=== PATIENT | female | born 1950 | race Caucasian/White ===

== ENCOUNTER → 2018-11-09 | Outpatient (CLI) | payer OTHER, MEDICARE ==
[2018-11-09 11:53] VITALS: BP 166/81; PULSE 62; RESP 16; TEMP 98; BMI 26.2
--- NOTE | 2018-11-09 12:50 | P.GSHP ---
History of Present Illness H&P Date: 11/09/18 Chief Complaint: pain in left breast since July Patient is a 68 year old white female with a complaint of bilateral breast pain. The pain is intermittent. The pain started in the left side and occurs 10-12 times per day. She has had this since July. No trauma to the breast. Recently the pain started also in the right breast. The pain does not radiate. She states the left side seems swollen to her. She has no history of infection in the breast. She has no nipple discharge. She is questioning if she can feel something in her left breast. It is in the inferior portion of hte breast. She has no fever or chills, but has had hot flashes since the pain started. Of significance is the fact that the patient had a total abdominal hysterectomy at 25. This was done for endometriosis. The patient did take hormone replacement therapy until the age of 51, and is not taking anything for approximately 17 years. The patient drinks 2-3 cups of coffee in the morning. She does not drink soda or other caffeinated beverages. The patient does not smoke and is not exposed to cigarette smoke. The patient is not taking any hormones at the present time. The patient was exposed to second hand smoke many years ago. The patient had a bilateral mammogram performed 2518 which was BIRADS 2 benign findings follow up in 1 year recommended. Family History: maternal cousin: breast at 50, bilateral mastectomy Hormonal History: menarche: 11 : 7, 2 live births, first at 18, breast fed: yes menopause: hysterctomy for endometriosis in her 20's BCP: 4 years hormones: 25 years, used to take estrogen and B12 shots and than switched to oral estrogen Past surgical history: 1. Total abdominal hysterectomy 2. TNA 3. Left knee 4. D&C 5. Surgery for adhesions and small bowel obstruction 6. Vocal cord stripping 7. Bunionectomy right foot 8. Fracture left elbow 9. Cholecystectomy 10. Hemorrhoid surgery 11. Colon resection ulcerative colitis, and diverticular disease 12. back surgery Medical History: 1. mitral valve prolapse 2. history of pancreatitis after a scope 3. ulcerative colitis 4. need for intubation with epiglotitis 5. laryngotracheobronchitiis 6. viral meningitis Social History: smoke: none alcohol: occasional drugs: none - Constitutional Comment: BMI 26.2 Constitutional: Reports chills, Reports sweats - EENT Eyes: denies blurred vision, denies pain Ears: deny: decreased hearing, tinnitus Ears, nose, mouth and throat: Reports headache, Denies sore throat - Breasts Breasts: bilateral: as per HPI - Cardiovascular Comment: MVP Cardiovascular: Denies chest pain, Denies shortness of breath - Respiratory Respiratory: Denies cough, Denies 7 - Gastrointestinal Comment: ulcertive colitis diverticular disease - Genitourinary (Female) Genitourinary: Denies dysuria, Denies hematuria - Menstruation Menstruation: Reports post hysterectomy - Musculoskeletal Comment: back surgery arthritis in her hands - Integumentary Integumentary: Denies pruritus, Denies rash - Neurological Neurological: Denies numbness, Denies weakness - Psychiatric Psychiatric: Denies anxiety, Denies depression - Endocrine Comment: thyroid nodules - Hematologic/Lymphatic Comment: baby aspirin - Allergic/Immunologic Allergic/Immunologic: Reports seasonal allergies Past Medical History History of Any Multi-Drug Resistant Organisms: None Reported Smoking Status: Never smoker Medications and Allergies Home Medications Medication Instructions Recorded Confirmed Type ALPRAZolam [Xanax] 0.5 mg PO TID PRN 11/09/18 11/09/18 History Acetaminophen [Tylenol Arthritis] 650 mg PO 11/09/18 History Aspirin 81 mg PO DAILY 11/09/18 11/09/18 History Cyanocobalamin (Vitamin B-12) 1,000 mcg PO 11/09/18 History [Vitamin B-12] Glimepiride [Amaryl] 1 mg PO AC-BRKFST 11/09/18 11/09/18 History Hydrochlorothiazide 25 mg PO 11/09/18 History Levothyroxine Sodium 125 mcg PO 11/09/18 History Metoprolol Succinate (ER) [Toprol 100 mg PO DAILY 11/09/18 11/09/18 History Xl] amLODIPine [Norvasc] 5 mg PO DAILY 11/09/18 11/09/18 History metFORMIN HCL 500 mg PO 11/09/18 History Allergies Allergy/AdvReac Type Severity Reaction Status Date / Time iodine Allergy Rash/Hives Unverified 11/09/18 12:08 Penicillins Allergy Rash/Hives Unverified 11/09/18 12:08 acetaminophen [From Vicodin] AdvReac Hallucinati Unverified 11/09/18 12:08 ons codeine AdvReac Hallucinati Unverified 11/09/18 12:08 ons hydrocodone [From Vicodin] AdvReac Hallucinati Unverified 11/09/18 12:08 ons lorazepam [From Ativan] AdvReac Hallucinati Unverified 11/09/18 12:08 ons meperidine [From Demerol] AdvReac Hallucinati Unverified 11/09/18 12:08 ons morphine AdvReac Hallucinati Unverified 11/09/18 12:08 ons pentazocine [From Talwin] AdvReac Hallucinati Unverified 11/09/18 12:08 ons Surgical - Exam Vital Signs Temp Pulse Resp BP Pulse Ox 98.0 F 62 16 166/81 97 11/09/18 11:46 11/09/18 11:46 11/09/18 11:46 11/09/18 11:46 11/09/18 11:46 BMI 26.2 - General well developed, well nourished, no distress - Eyes normal ocular movement - ENT no hearing loss, no congestion - Neck no masses, trachea midline - Respiratory normal respiratory effort, clear to auscultation - Cardiovascular Rhythm: regular Heart Sounds: normal: S1, S2 - Abdomen Abdomen: soft, non tender, no guarding, no rigid, no rebound - Integumentary normal turgor - Neurologic no disoriented, no combative - Musculoskeletal normal gait, normal posture - Psychiatric oriented to time, oriented to person, oriented to place, speech is normal, memory intact breast exam: left breasts: Multiple positional exam with no dominant masses or nodules of concern, fibrocystic changes, increased nodularity which is believed to be fibrocystic in the retroareolar region inferiorly Right axilla: No adenopathy of concern Left breast: Multiple positional exam no dominant mass or nodule is of concern, fibrocystic changes, increased nodularity in the periareolar region believed to be fibrocystic changes Left axilla: No adenopathy of concern Results Mammogram reports reviewed Assessment and Plan Assessment: Impression: 1. Bilateral mastodynia 2. Bilateral fibrocystic breast changes 3. Family history of breast cancer in a cousin 4. History of pancreatitis 5. History of ulcerative colitis 6. History of diverticular disease 7. Laryngeal tracheal bronchitis in the past 8. History of acute epiglottitis requiring intubation 9. History of endometrial disease resulting in abdominal hysterectomy total 10. Arthritis The patient has bilateral breast pain. The pain is relatively recent in onset started within the last 6 months. It started greatest on the left side and then became present on the right side as well. The pain is intermittent in nature. It is not cyclical. It is not normal precipitates the pain. The patient also has a history of starting to have hot flashes about the time the pain started. I would therefore question that there is some hormonal component to the pain. I would suggest that we would get hormone levels to further evaluate this. Additionally the patient has a long history of inflammatory changes possibly some autoimmune disease. This is reflective of the history of arthritis, ulcerative colitis, the tracheobronchitis, and the acute epiglottitis requiring intubation for which we have no known specific etiology. It may be that the pain is autoimmune/inflammatory in nature exacerbated by a change in her hormonal status. At this time I would suggest that the patient may benefit from a consultation with possibly an doughmaker cemetery manager. At this point we will treat conservatively. At this point the patient has no indication of any malignancy in her breast or anything which will morning in interventional biopsy. I talked about stopping the cath and the patient will attempt to do this. Plan: 1. Attempt to stop coffee 2. Follow up with cemetery manager 3. Consider a trial of primrose oil 4. Nonsteroidal anti-inflammatories 5. Follow-up in 2 months 6. Consider testing for hormone levels Cc: Dr. Ozuna
== END ==
LOC: WWCWWP 11:36
PROVIDERS: ATTEND Surgery
DX: Z53.9 Procedure and treatment not carried out, unspecified reason (principal)

== ENCOUNTER → 2018-11-27 | Outpatient (CLI) | payer OTHER, MEDICARE ==
[2018-11-27 10:11] VITALS: BP 133/82; PULSE 57; RESP 16; TEMP 98.5; BMI 26.0
--- NOTE | 2018-11-27 11:24 | P.HPOB ---
History of Present Illness H&P Date: 11/27/18 Chief Complaint: The patient is here for her routine gynecologic exam. This is a 68-year-old with an LMP of 1975. She is status post SUE BSO in 1975 for endometriosis. The patient states that is been more than 10 years since her last pelvic exam. The patient states she started experiencing sharp left breast pain about 3 months ago[address] She saw Dr. Red regarding the breast pain and and she suggested seeing me for gynecologic evaluation. The patient used HRT starting shortly after her SUE BSO and continue to use estrogen shots every few weeks until age 51. When ERT was discontinued, she states she really did not have any significant problems. She states the left breast pains occur about 4 times per day and this has been essentially every day since they started. She denies any leakage from the breast and denies any unusual facial hair growth. The only medication was recently started was vitamin B12. She has taken vitamin B12 in the past without problems and she restarted this about 2 or 3 months ago. She is not sexually active. She denies any pelvic pain. Review of Systems The patient's weight has been stable over the last year. She denies respiratory, cardiac, or G.I. problems. Past Medical History Past Medical History: Diabetes Mellitus, Hypertension, Thyroid Disorder Additional Past Medical History / Comment(s): IBS,Diverticulosis. Hypothyroid. Type II diabetes. 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 Her hysterectomy was for endometriosis. History of Any Multi-Drug Resistant Organisms: None Reported Past Surgical History: Adenoidectomy, Appendectomy, Back Surgery, Bowel Resection, Cholecystectomy, Hysterectomy, Tonsillectomy Additional Past Surgical History / Comment(s): R&L Bunionectomy,Colon resection,Hemorrhoid removal, larynx surgery, knee surgery, SUE BSO in 1975 , multiple D&C & laparoscopies. Colonoscopy 2017(Multiple). Past Psychological History: No Psychological Hx Reported Smoking Status: Never smoker Past Alcohol Use History: Occasional (3 per month) Past Drug Use History: None Reported Additional History: She has been since 1968 and is retired. She is not sexually active due to her 's health issues. - Past Family History Mother Additional Family Medical History / Comment(s): EtOH related . Cousin Family Medical History: Cancer Additional Family Medical History / Comment(s): Cousin had breast cancer. Father Family Medical History: Unable to Obtain Medications and Allergies Home Medications Medication Instructions Recorded Confirmed Type ALPRAZolam [Xanax] 0.5 mg PO TID PRN 11/09/18 11/27/18 History Acetaminophen [Tylenol Arthritis] 650 mg PO DAILY 11/09/18 History Aspirin 81 mg PO DAILY 11/09/18 11/27/18 History Cyanocobalamin (Vitamin B-12) 1,000 mcg PO DAILY 11/09/18 11/27/18 History [Vitamin B-12] Glimepiride [Amaryl] 1 mg PO AC-BRKFST 11/09/18 11/27/18 History Hydrochlorothiazide 25 mg PO DAILY 11/09/18 11/27/18 History Levothyroxine Sodium 125 mcg PO DAILY 11/09/18 11/27/18 History Metoprolol Succinate (ER) [Toprol 100 mg PO DAILY 11/09/18 11/27/18 History Xl] amLODIPine [Norvasc] 5 mg PO DAILY 11/09/18 11/27/18 History metFORMIN HCL 500 mg PO BID 11/09/18 11/27/18 History Allergies Allergy/AdvReac Type Severity Reaction Status Date / Time iodine Allergy Rash/Hives Unverified 11/27/18 09:46 Penicillins Allergy Rash/Hives Unverified 11/27/18 09:46 acetaminophen [From Vicodin] AdvReac Hallucinati Unverified 11/27/18 09:46 ons codeine AdvReac Hallucinati Unverified 11/27/18 09:46 ons hydrocodone [From Vicodin] AdvReac Hallucinati Unverified 11/27/18 09:46 ons lorazepam [From Ativan] AdvReac Hallucinati Unverified 11/27/18 09:46 ons meperidine [From Demerol] AdvReac Hallucinati Unverified 11/27/18 09:46 ons morphine AdvReac Hallucinati Unverified 11/27/18 09:46 ons pentazocine [From Talwin] AdvReac Hallucinati Unverified 11/27/18 09:46 ons Exam Vital Signs Temp Pulse Resp BP Pulse Ox 11/27/18 10:00 98.5 F 57 L 16 133/82 97 Intake and Output 11/26/18 11/27/18 11/27/18 22:59 06:59 14:59 Other: Weight 66.678 kg Height 5'3", weight 147 pounds, BMI 26.0. This is a well-developed well-nourished white female who is alert and oriented times 3 in no acute distress. HEENT: Within normal limits. NECK: Supple without mass or thyromegaly. CHEST AND LUNGS: Clear to auscultation. HEART: Regular rate and rhythm. BREASTS: Are without mass or discharge. There is mild to moderate tenderness in the left breast at the 8 o'clock and 1 o'clock positions. There are no palpable masses. The breasts are normal to inspection. AXILLARY EXAM: Negative for adenopathy. BACK: Negative for CVA tenderness. ABDOMEN: Soft, nontender, without palpable masses. PELVIC EXAM: External genitalia appears normal with mild to moderate atrophy. Vagina appears normal with moderate atrophy. There is no evidence of prolapse. Bimanual examination is negative for mass. There is mild to moderate left pelvic tenderness without palpable mass. There is no right pelvic tenderness. The vagina is mildly shortened. The vaginal cuff seems well supported. RECTAL EXAM: Rectovaginal exam is negative for mass or tenderness and is negative for occult blood. EXTREMITIES: Nontender. IMPRESSION: 1. 68-year-old menopausal female status post SUE BSO at age 25, done for endometriosis. 2. Left mastodynia times 3 months with a left sided breast tenderness. Differential diagnosis will include fibrocystic changes and, less likely, abnormal hormone levels which might cause breast pain. I believe hormonal issues would be less likely since it is only one breast that is painful. 3. Left pelvic tenderness on examination today. The patient denied having any recent pelvic pain. Differential diagnosis will include tenderness from the G.I. tract, pelvic adhesions, and less likely, ovarian remnant neoplasm. PLAN: 1. Pap smears have been discontinued. 2. Self breast awareness was discussed with the patient. 3. Blood tests today will include FSH, estradiol, and prolactin. 4. Pelvic ultrasound will be scheduled. 5. Osteoporosis prevention was discussed. I have stressed the importance of adequate calcium, vitamin D and regular exercise. Recommended amounts of calcium and vitamin D were also discussed. I have recommended a bone density screening test since she has never had this done before. 6. She will continue to follow-up with Dr. Harman Saldana for breast issues. 7.She was advised to return in one year for her annual well woman exam.
--- NOTE | 2018-11-28 14:51 | P.PN ---
Progress Note - Text Progress Note Date: 11/28/18 OUTPATIENT FOLLOW-UP NOTE TEST(S)/RESULTS: test results from 11/27/2018 include FSH 73.9, prolactin 7.9, estradiol 17.4. METHOD OF NOTIFICATION: patient was notified by phone. PATIENT COMMENTS: she has scheduled her pelvic ultrasound and bone density testing for tomorrow. DIAGNOSIS: left mastodynia with blood tests consistent with normal menopausal hormone levels and normal prolactin level. DISCUSSION: PLAN: pelvic ultrasound and bone density testing on 11/29/2018.
== END ==
LOC: WWCWWP 09:29
PROVIDERS: ATTEND Obstetrics & Gynecology
DX: N64.4 Mastodynia (principal); R68.89 Other general symptoms and signs
CPT/HCPCS: 36415; 82670; 83001; 84146

== ENCOUNTER → 2018-11-29 | Outpatient (CLI) | payer OTHER, MEDICARE ==
--- NOTE | 2018-11-29 16:42 | US ---
EXAMINATION TYPE: US pelvic limited DATE OF EXAM: 11/29/2018 COMPARISON: NONE CLINICAL HISTORY: 68-year-old female R68.89 PELVIC TENDERNESS. Telephone Lines Repairer notes: Patient had bilateral oophorectomy and hysterectomy. TECHNIQUE: Transabdominal (TA). Date of LMP: 1975 Findings: 1. Uterus: Surgically absent 2. Endometrium: Surgically absent 3. Right Ovary: Surgically absent 4. Left Ovary: Surgically absent 5. Bilateral Adnexa: Peristalsing bowel seen bilaterally 6. Posterior cul-de-sac: wnl IMPRESSION: Status post hysterectomy and bilateral salpingo-oophorectomy. Peristalsing bowel noted in the adnexa. No pelvic free fluid seen.
--- NOTE | 2018-11-29 19:35 | BD ---
EXAMINATION TYPE: Axial Bone Density DATE OF EXAM: 11/29/2018 COMPARISON: NONE CLINICAL HISTORY: 68 YR OLD FEMALE....ICD-10 CODE: Z78.0 POST MENOPAUSAL STATE Height: 62.8 Weight: 144 FRAX RISK QUESTIONS: History of Fracture in Adulthood: YES Secondary Osteoporosis: YES 3. Menopause before 45: YES, AT 25 YRS OLD RISK FACTORS HISTORY OF: HX OF ANKLE FRACTURE AND ELBOW FX...AFTER AGE 51 YR OLD Surgery to Spine.....ON DISC ONLY AT L5/S1 Active: YES Postmenopausal woman: YES AT AGE 25, TOTAL HYST. Take estrogen and/or progesterone medications: YES FROM AGE 25 TO AGE 51 MEDICATIONS: Thyroid Medications: YES GENERIC SYNTHROID, FOR ABOUT 19 YRS Additional Medications: BP MEDS, XANAX, METFORMIN, Additional History: HYPERTENSION, DIABETIC, EXAM MEASUREMENTS: Bone mineral densitometry was performed using the '[employer] System. Bone mineral density as measured about the Lumbar spine is: ----- L1-L4(G/cm2): 0.977 T Score Values are as follows: ----- L1: -1.2 ----- L2: -2.2 ----- L3: -1.6 ----- L4: -1.9 ----- L1-L4: -1.7 Bone mineral density FIRST BONE DENSITY SCAN.....BASELINE STUDY Bone mineral density about the R hip (g/cm2): 0.827 Bone mineral density about the L hip (g/cm2): 0.816 T Score values are as follows: -----R Neck: -2.0 -----L Neck: -2.1 -----R Total: -1.4 -----L Total: -1.5 Bone mineral density BASELINE STUDY FRAX%s: THERE IS A 19.0% CHANCE FOR A MAJOR OSTEOPOROTIC FX AND A 3.3% FOR HIP......PROBABILITY OF FX IN 10 YRS TIME IMPRESSION: Osteopenia (T Score between -2.5 and -1). There is slightly increased risk of fracture and the patient may be considered for treatment. Re-Screen 2-5 years. NOTE: T-SCORE=SD OF THE YOUNG ADULT MEAN.
== END | disposition home or self-care (01) ==
LOC: RADBDWWP 09:37
PROVIDERS: ATTEND Obstetrics & Gynecology
DX: R10.2 Pelvic and perineal pain (principal); M85.851 Other specified disorders of bone density and structure, right thigh; M85.852 Other specified disorders of bone density and structure, left thigh; M85.88 Other specified disorders of bone density and structure, other site; Z78.0 Asymptomatic menopausal state; Z90.710 Acquired absence of both cervix and uterus; Z90.722 Acquired absence of ovaries, bilateral
CPT/HCPCS: 76857; 77080

== ENCOUNTER → 2019-01-24 | Outpatient (CLI) | payer MEDICARE, OTHER ==
--- NOTE | 2019-01-24 13:35 | P.PN ---
Subjective Progress Note Date: 01/24/19 Principal diagnosis: breast pain Ana is a 68-year-old white female who was initially seen and 4519 with a complaint of bilateral breast pain. At that time she noted that the pain had started on the left side and occurred 10-12 times per day. The patient then had progressed to the right side as well. She didn't drink 2-3 cups of coffee in the morning. She did not drink soda or other caffeinated beverages. She did not smoke and is not exposed to cigarette smoke. She was not taking any hormones. She was eating chocolate occasionally. The patient's most recent bilateral mammogram was on 2518 which was felt to be benign and BIRADS 2. The patient since her last visit has abstained from caffeine. She has decreased her chocolate intake. And she is using evening primrose oil. She states that since that time she is not having breast pain in the longer. She has not taken any hormones at this time. Family history: Maternal cousin: Breast cancer at 50, bilateral mastectomy Hormonal history: Menarche: 11 Pregnancies: 6, to arrive this, first a 18, breast fed: Yes Menopause: History colectomy for endometriosis in her 20s Postoperative control pills colon 4 years Hormones: 25 years, used to take estrogen and B12 shots and then switch to oral estrogen Past Surgical history: 1. total abdominal hysterctomy 2. TNA 3. Left knee surgery 4. D&C 5. Surgery for adhesions and small bowel obstruction 6. Vocal cord stripping 7. Bunionectomy right foot 8. Fracture left elbow 9. Cholecystectomy 10. Hemorrhoid surgery 11. Colon resection ulcerative colitis and diverticular disease 12. Back surgery Medical history: 1. Mitral valve prolapse 2. History of pancreatitis after in upper scope 3. Ulcerative colitis 4. Need for intubation with epiglottitis 5. Laryngeal tracheobronchitis 6. Viral meningitis 7. Recent fall with fracture of right hand and wrist Social history: Smoke: Negative Alcohol: Occasional Drugs: Negative Review of systems: HEENT: Wears glasses Lungs: Negative Heart: Negative GI: History of colon resection for diverticular disease and history of pancreatitis : hysterectomy Musculoskeletal: artheritis, osteopenia Skin: Negative Psychiatric: Negative ALLERGIES: Seasonal and see HPI Objective - Vital Signs Vital signs: Intake & Output 06/19/19 06/20/19 06/20/19 18:59 06:59 18:59 Weight 65.771 kg - Exam BMI 25.7 - Constitutional General appearance: Present: average body habitus - EENT Eyes: Present: EOMI ENT: Present: hearing grossly normal - Neck Neck: Present: normal ROM - Respiratory Respiratory: bilateral: CTA - Cardiovascular Rhythm: regular Heart sounds: normal: S1, S2 - Gastrointestinal Gastrointestinal Comment(s): no guarding or rebound General gastrointestinal: Present: soft - Integumentary Integumentary: Present: normal turgor - Musculoskeletal Musculoskeletal: Present: gait normal - Psychiatric Psychiatric: Present: A&O x's 3, appropriate affect, intact judgment & insight - Additional findings Additional findings: breast exam: Breasts: Multiple positional exam fibrocystic changes, nodularity which was noted to be in the inferior retrograde retroareolar region has decreased Right axilla: No adenopathy of concern left breast: Multiple positional exam no dominant masses or nodules of concern, fibrocystic changes, increased nodularity in the periareolar region believed to be decreased Left axilla: No adenopathy of concern No complaints of rest pain on exam in either breast Assessment and Plan Assessment: Impression: 1. Mitral valve prolapse 2. History of pancreatitis after in upper scope 3. Ulcerative colitis 4. Need for intubation with epiglottitis 5. Laryngeal tracheobronchitis 6. Viral meningitis 7. Recent fall with fracture of right hand and wrist 8. diabetic type 2 9. family history of cancer of bresat inmaternal cousin 10. fibrocystic bresat disease 11. arthritis/osteopenia Plan: 1. Continue present therapy as breast pain has resolved 2. Medical management of medical conditions 3. Repeat bilateral mammogram and physician exam in September 2019 4. Patient to call sooner if anything of concern Cc: Dr. Alvaro Ozuna
[2019-01-24 13:48] VITALS: BP 154/87; PULSE 61; RESP 18; TEMP 98.7; BMI 25.7
== END | disposition home or self-care (01) ==
LOC: WWCWWP 12:46
PROVIDERS: ATTEND Surgery
DX: Z53.9 Procedure and treatment not carried out, unspecified reason (principal)